=== PATIENT | male | born 1945 | race Caucasian/White ===

== ENCOUNTER 2016-12-08 14:17 | Inpatient (IN) | payer MEDICARE, OTHER ==
[~2016-12-08] VITALS: Ht 162.6 cm; Wt 43.1 kg
[~2016-12-08 14:17] MED LIST: AMLO5TAB2 PO; ATOR40TA PO; BUPR150T12 PO; CALA113P TP; DOCU250C75 PO; HALO5AMP3 IJ; HEPA500013 IJ; LORA1TAB PO; POLY17PO3 PO; QUET25TA PO; RISP2TAB23 PO; SENN176S PO; THIA100T74 PO; THIA100V2 IJ
[2016-12-08] MEDS ORDERED: BISA10SU61 RC (14:38)
[2016-12-08] MEDS ORDERED: MULT1CAP34 PO (14:38)
[2016-12-08] MEDS ORDERED: NA P133E RC (14:38)
[2016-12-08] MEDS ORDERED: MAGN400O6 PO (14:38)
[2016-12-08] MEDS ORDERED: MAG30ORA PO (14:38)
[2016-12-08] MEDS ORDERED: ASCO500T8 PO (14:38)
[2016-12-08] MEDS ORDERED: POTA20PA15 PO (14:38)
[2016-12-08] MEDS ORDERED: MIRT15TA3 PO (14:38)
[2016-12-08] MEDS ORDERED: ACET-868 PO (14:38)
[2016-12-08] MEDS ORDERED: IV SET PRIMARY 1 EA INFUS.SET MC ONE (14:50)
[2016-12-08] MEDS ORDERED: IV NS 0.9% 2,000 ML ONE (14:50)
[2016-12-08] MEDS ORDERED: IV SET PRIMARY PUMP SET 1 EA INFUS.SET MC ONE ×2 (14:50→18:34)
[2016-12-08] MEDS ORDERED: CEFTRIAXONE 1GM BAG (ER ONLY) 50 ML IV ONE ×2 (14:50→15:00)
[2016-12-08] MEDS ORDERED: AZITHROMYCIN 500 MG in IV D5W 250 ML IV ONE (15:00)
[2016-12-08] MEDS ORDERED: IV NS 0.9% 1,000 ML BAG IV ONE (15:00)
[2016-12-08 15:12] LABS: BASOPHILS # (AUTO) 0.1 /CMM (0.0-0.2); BASOPHILS % (AUTO) 0.2 % (0.0-2.0); DIFF TOTAL % 100 %; HEMATOCRIT 43 % (39-51); HEMOGLOBIN 14.6 g/dL (13.5-17.5); LYMPHOCYTES # (AUTO) 0.7 /CMM (0.8-4.8); LYMPHOCYTES % (AUTO) 2.3 % (20.0-44.0); MEAN CORPUSCULAR HEMOGLOBIN 31 PG (26.0-33.0); MEAN CORPUSCULAR HGB CONC 34 g/dl (31.0-36.0); MEAN CORPUSCULAR VOLUME 91 fL (80-96); MONOCYTES # (AUTO) 1.2 /CMM (0.1-1.30); MONOCYTES % (AUTO) 4.3 % (2.0-12.0); NEUTROPHILS # (AUTO) 26.4 /CMM (1.8-8.9); NEUTROPHILS % (AUTO) 93.2 % (43.0-81.0); PLATELET COUNT (AUTO) 440 /CMM (150-450); RED BLOOD CELL COUNT(AUTO) 4.73 MIL/uL (4.5-6.0); WHITE BLOOD COUNT (AUTO) 28.4 K/uL (4.3-11.0)
[2016-12-08 15:21] LABS: TROPONIN I 0.081 ng/mL (0.00-0.056)
[2016-12-08 15:26] LABS: ALBUMIN 2.3 g/dL (3.4-5.0); BILIRUBIN,DIRECT 0.4 mg/dL (0.0-0.2); BILIRUBIN,TOTAL 0.8 mg/dL (0.2-1.0); CALCIUM, SERUM 9.5 mg/dL (8.5-10.1); CREATININE 2.2 mg/dL (0.6-1.3); INDIRECT BILIRUBIN 0.4 mg/dL (0.0-1.1); POTASSIUM 4.2 mmol/L (3.5-5.1); TOTAL PROTEIN, SERUM 9.6 g/dL (6.4-8.2)
[2016-12-08] MEDS ORDERED: MORPHINE SULFATE INJ 2 MG/ML DISP.SYRIN IV PRN (16:30)
[2016-12-08] MEDS ORDERED: MEROPENEM 500 MG in IV NS 0.9% 50 ML IV SCH (16:30)
[2016-12-08] MEDS ORDERED: Z GUARD REMEDY 2 OZ OINT TP PRN (16:30)
[2016-12-08] MEDS ORDERED: ACETAMINOPHEN 650 MG/SUPP.RECT RC PRN (16:30)
[2016-12-08] MEDS ORDERED: ONDANSETRON HCL/PF 4 MG/2 ML VIAL IVP PRN (16:30)
[2016-12-08 17:30] VITALS: BP 113/57
[2016-12-08] MEDS ORDERED: FEE PK DOSING 1 MIN EA MC ONE (17:51)
[2016-12-08 18:00] VITALS: BP 113/57
[2016-12-08] MEDS ORDERED: VANCOMYCIN 0.75 GM in IV D5W 250 ML IV SCH (18:00)
[2016-12-08] MEDS ORDERED: SECONDARY IV SET 1 EA INFUS.SET MC ONE (18:34)
[2016-12-08] MEDS ORDERED: IV NS 0.9% 250 ML IV ONE (18:34)
[2016-12-08] MEDS ORDERED: IV D5/ 0.9% NACL 1,000 ML IV ONE (19:36)
[2016-12-08] MEDS: MEROPENEM 500 MG in IV NS 0.9% 50 ML IV SCH (19:41)
[2016-12-08] MEDS: IV D5/ 0.9% NACL 1,000 ML IV PRN (19:41)
[2016-12-08 20:00] VITALS: BP 110/74
[2016-12-08 21:05] LABS: LACTIC ACID 3.4 mmol/L (0.4-2.0)
[2016-12-08 21:27] LABS: KETONES,URINE NEGATIVE (NEGATIVE); LEUKOCYTE ESTERASE ,URINE NEGATIVE (NEGATIVE)
[2016-12-08 21:28] LABS: ADD UA MICROSCOPIC YES
[2016-12-08 21:32] LABS: *LACTIC ACID REFLEX FLAG YES
[2016-12-08 21:35] LABS: ADD URINE CULTURE NO
[2016-12-09] VITALS: BP 120/81
[2016-12-09 04:00] VITALS: BP 90/57
[2016-12-09] MEDS ORDERED: IV D5/ 0.9% NACL 1,000 ML IV ONE (05:23)
[2016-12-09] MEDS: IV D5/ 0.9% NACL 1,000 ML IV PRN (05:28)
[2016-12-09 06:56] LABS: BASOPHILS % (AUTO) 0.2 % (0.0-2.0); DIFF TOTAL % 100 %; EOSINOPHILS # (AUTO) 0.1 /CMM (0.0-0.7); EOSINOPHILS % (AUTO) 0.3 % (0.0-6.0); HEMATOCRIT 36 % (39-51); HEMOGLOBIN 11.5 g/dL (13.5-17.5); LYMPHOCYTES # (AUTO) 0.8 /CMM (0.8-4.8); MEAN CORPUSCULAR HEMOGLOBIN 30 PG (26.0-33.0); MEAN CORPUSCULAR HGB CONC 32 g/dl (31.0-36.0); MEAN CORPUSCULAR VOLUME 92 fL (80-96); MONOCYTES # (AUTO) 0.5 /CMM (0.1-1.30); MONOCYTES % (AUTO) 2.4 % (2.0-12.0); NEUTROPHILS # (AUTO) 18.9 /CMM (1.8-8.9); NEUTROPHILS % (AUTO) 93.1 % (43.0-81.0); PLATELET COUNT (AUTO) 324 /CMM (150-450); RED BLOOD CELL COUNT(AUTO) 3.87 MIL/uL (4.5-6.0); WHITE BLOOD COUNT (AUTO) 20.3 K/uL (4.3-11.0)
[2016-12-09 07:19] LABS: CALCIUM, SERUM 8.4 mg/dL (8.5-10.1); CREATININE 1.4 mg/dL (0.6-1.3); PHOSPHORUS 3.3 mg/dL (2.5-4.9); POTASSIUM 4.3 mmol/L (3.5-5.1)
[2016-12-09 07:37] LABS: THYROID STIMULATING HORMONE 0.171 uIU/mL (0.358-3.74)
[2016-12-09 08:00] VITALS: BP_SYST 104; BP_SYST 109; BP_DIAS 61
[2016-12-09] MEDS: MEROPENEM 500 MG in IV NS 0.9% 50 ML IV SCH ×2 (09:07→20:21)
[2016-12-09] MEDS: PANTOPRAZOLE 40 MG VIAL IV SCH (09:08)
[2016-12-09] MEDS ORDERED: SECONDARY IV SET 1 EA INFUS.SET MC ONE (12:55)
[2016-12-09] MEDS: VANCOMYCIN 0.75 GM in IV D5W 250 ML IV SCH (12:55)
[2016-12-09] MEDS: IV D5/0.45 NACL 1,000 ML IV PRN (12:57)
[2016-12-09 16:00] VITALS: BP 121/63
[2016-12-09 20:00] VITALS: BP 117/70
[2016-12-10] MEDS: IV D5/0.45 NACL 1,000 ML IV PRN (01:24)
[2016-12-10 04:00] VITALS: BP 106/63
[2016-12-10] MEDS: VANCOMYCIN 0.75 GM in IV D5W 250 ML IV SCH ×2 (05:24→23:47)
[2016-12-10 07:10] LABS: DIFF TOTAL % 100 %; EOSINOPHILS # (AUTO) 0.1 /CMM (0.0-0.7); EOSINOPHILS % (AUTO) 0.4 % (0.0-6.0); HEMATOCRIT 36 % (39-51); HEMOGLOBIN 11.8 g/dL (13.5-17.5); LYMPHOCYTES # (AUTO) 0.7 /CMM (0.8-4.8); LYMPHOCYTES % (AUTO) 3.8 % (20.0-44.0); MEAN CORPUSCULAR HEMOGLOBIN 30 PG (26.0-33.0); MEAN CORPUSCULAR HGB CONC 33 g/dl (31.0-36.0); MEAN CORPUSCULAR VOLUME 92 fL (80-96); MONOCYTES # (AUTO) 0.5 /CMM (0.1-1.30); NEUTROPHILS % (AUTO) 92.8 % (43.0-81.0); PLATELET COUNT (AUTO) 300 /CMM (150-450); RED BLOOD CELL COUNT(AUTO) 3.91 MIL/uL (4.5-6.0); WHITE BLOOD COUNT (AUTO) 17.3 K/uL (4.3-11.0)
[2016-12-10 07:19] LABS: CREATININE 1.4 mg/dL (0.6-1.3); PHOSPHORUS 3.7 mg/dL (2.5-4.9); POTASSIUM 4.1 mmol/L (3.5-5.1)
[2016-12-10 08:00] VITALS: BP 100/61
[2016-12-10] MEDS: MEROPENEM 500 MG in IV NS 0.9% 50 ML IV SCH ×2 (08:36→19:41)
[2016-12-10] MEDS: PANTOPRAZOLE 40 MG VIAL IV SCH (08:36)
[2016-12-10] MEDS ORDERED: IV D5W 1,000 ML IV PRN (11:00)
[2016-12-10 13:05] LABS: ABG BASE EXCESS -6.1 mmol/L; ABG PCO2 23.3 mmHg (35.0-45.0); ABG PH 7.455 (7.350-7.450); ABG PO2 66.3 mmHg (75.0-100.0); ABG TOTAL HEMOGLOBIN 12.2 G/dL (13.5-18.0); ALLEN TEST PASSED; AaDO2 407.8 mmHg; O2Hb 91.4 % (94.0-97.0)
[2016-12-10] MEDS ORDERED: FUROSEMIDE 40 MG/4 ML VIAL IV ONE ×2 (13:30→14:30)
[2016-12-10 16:00] VITALS: BP 97/69
[2016-12-10] MEDS: IV D5W 1,000 ML IV PRN (16:45)
[2016-12-10] MEDS: ENOXAPARIN SODIUM 30 MG/0.3 ML DISP.SYRIN SQ SCH (16:46)
[2016-12-10 20:00] VITALS: BP 96/57
[2016-12-10] MEDS ORDERED: SECONDARY IV SET 1 EA INFUS.SET MC ONE (23:44)
[2016-12-11] VITALS (7 sets, daily range): BP systolic 96–114; BP diastolic 48–62
[2016-12-11] MEDS: IV D5W 1,000 ML IV PRN ×2 (05:31→17:31)
[2016-12-11 07:11] LABS: CALCIUM, SERUM 8.6 mg/dL (8.5-10.1); CREATININE 1.3 mg/dL (0.6-1.3); POTASSIUM 3.5 mmol/L (3.5-5.1)
[2016-12-11] MEDS: PANTOPRAZOLE 40 MG VIAL IV SCH (08:35)
[2016-12-11] MEDS: MEROPENEM 500 MG in IV NS 0.9% 50 ML IV SCH ×2 (08:36→20:26)
[2016-12-11] MEDS: VANCOMYCIN 0.75 GM in IV D5W 250 ML IV SCH (18:20)
[2016-12-11] MEDS: ENOXAPARIN SODIUM 30 MG/0.3 ML DISP.SYRIN SQ SCH (20:27)
[2016-12-11] MEDS ORDERED: SECONDARY IV SET 1 EA INFUS.SET MC ONE (20:50)
[2016-12-12] VITALS: BP 121/55
[2016-12-12 04:00] VITALS: BP_SYST 106; BP_SYST 121; BP_DIAS 54; BP_DIAS 55
[2016-12-12 07:20] LABS: BASOPHILS % (AUTO) 0.4 % (0.0-2.0); DIFF TOTAL % 100 %; EOSINOPHILS # (AUTO) 0.4 /CMM (0.0-0.7); EOSINOPHILS % (AUTO) 3.8 % (0.0-6.0); HEMATOCRIT 38 % (39-51); HEMOGLOBIN 12.4 g/dL (13.5-17.5); LYMPHOCYTES # (AUTO) 0.9 /CMM (0.8-4.8); LYMPHOCYTES % (AUTO) 8.5 % (20.0-44.0); MEAN CORPUSCULAR HEMOGLOBIN 29 PG (26.0-33.0); MEAN CORPUSCULAR HGB CONC 32 g/dl (31.0-36.0); MEAN CORPUSCULAR VOLUME 91 fL (80-96); MONOCYTES # (AUTO) 0.3 /CMM (0.1-1.30); MONOCYTES % (AUTO) 2.9 % (2.0-12.0); NEUTROPHILS # (AUTO) 8.9 /CMM (1.8-8.9); NEUTROPHILS % (AUTO) 84.4 % (43.0-81.0); PLATELET COUNT (AUTO) 248 /CMM (150-450); RED BLOOD CELL COUNT(AUTO) 4.23 MIL/uL (4.5-6.0); WHITE BLOOD COUNT (AUTO) 10.6 K/uL (4.3-11.0)
[2016-12-12 07:27] LABS: CALCIUM, SERUM 8.8 mg/dL (8.5-10.1); CREATININE 1.2 mg/dL (0.6-1.3); PHOSPHORUS 3.5 mg/dL (2.5-4.9)
[2016-12-12 08:00] VITALS: BP 94/62
[2016-12-12] MEDS: MEROPENEM 500 MG in IV NS 0.9% 50 ML IV SCH ×2 (08:33→20:46)
[2016-12-12] MEDS: PANTOPRAZOLE 40 MG VIAL IV SCH (08:34)
[2016-12-12] MEDS: IV D5W 1,000 ML IV PRN (08:34)
[2016-12-12 12:00] VITALS: BP 90/40
[2016-12-12] MEDS: VANCOMYCIN 0.75 GM in IV D5W 250 ML IV SCH (12:22)
[2016-12-12 16:00] VITALS: BP 113/49
[2016-12-12 20:00] VITALS: BP 96/60
[2016-12-12] MEDS: ENOXAPARIN SODIUM 30 MG/0.3 ML DISP.SYRIN SQ SCH (20:47)
[2016-12-13] VITALS (25 sets, daily range): BP systolic 60–146; BP diastolic 19–99
[2016-12-13] MEDS: IV D5W 1,000 ML IV PRN ×2 (02:56→17:39)
[2016-12-13] MEDS: VANCOMYCIN 0.75 GM in IV D5W 250 ML IV SCH (05:26)
[2016-12-13 07:30] LABS: CALCIUM, SERUM 8.7 mg/dL (8.5-10.1); CREATININE 1.4 mg/dL (0.6-1.3); POTASSIUM 3.6 mmol/L (3.5-5.1)
[2016-12-13] MEDS: MEROPENEM 500 MG in IV NS 0.9% 50 ML IV SCH ×2 (08:35→20:21)
[2016-12-13] MEDS: PANTOPRAZOLE 40 MG VIAL IV SCH (08:35)
[2016-12-13 09:57] LABS: ABG BASE EXCESS -2.7 mmol/L; ABG HCO3 19.7 mmol/L; ABG PCO2 27.2 mmHg (35.0-45.0); ABG PH 7.477 (7.350-7.450); ABG PO2 52.9 mmHg (75.0-100.0); ABG TOTAL HEMOGLOBIN 11.7 G/dL (13.5-18.0); ALLEN TEST Pass; O2Hb 87.4 % (94.0-97.0)
[2016-12-13] MEDS: NEOMY SULF/BACITRAC ZN/POLY 15 GM TUBE TP SCH (20:22)
[2016-12-13] MEDS: ENOXAPARIN SODIUM 30 MG/0.3 ML DISP.SYRIN SQ SCH (20:22)
[2016-12-14] VITALS (31 sets, daily range): BP systolic 87–173; BP diastolic 29–80
[2016-12-14] MEDS: VANCOMYCIN 0.75 GM in IV D5W 250 ML IV SCH ×2 (00:02→17:55)
[2016-12-14 04:48] LABS: BASOPHILS % (AUTO) 0.2 % (0.0-2.0); DIFF TOTAL % 100 %; EOSINOPHILS # (AUTO) 0.3 /CMM (0.0-0.7); EOSINOPHILS % (AUTO) 2.1 % (0.0-6.0); HEMATOCRIT 34 % (39-51); HEMOGLOBIN 11.1 g/dL (13.5-17.5); LYMPHOCYTES # (AUTO) 0.8 /CMM (0.8-4.8); LYMPHOCYTES % (AUTO) 6.2 % (20.0-44.0); MEAN CORPUSCULAR HEMOGLOBIN 30 PG (26.0-33.0); MEAN CORPUSCULAR HGB CONC 33 g/dl (31.0-36.0); MEAN CORPUSCULAR VOLUME 89 fL (80-96); MONOCYTES # (AUTO) 0.5 /CMM (0.1-1.30); MONOCYTES % (AUTO) 3.8 % (2.0-12.0); NEUTROPHILS # (AUTO) 12.1 /CMM (1.8-8.9); NEUTROPHILS % (AUTO) 87.7 % (43.0-81.0); PLATELET COUNT (AUTO) 358 /CMM (150-450); RED BLOOD CELL COUNT(AUTO) 3.76 MIL/uL (4.5-6.0); WHITE BLOOD COUNT (AUTO) 13.8 K/uL (4.3-11.0)
[2016-12-14 05:08] LABS: CALCIUM, SERUM 8.4 mg/dL (8.5-10.1); CREATININE 1.1 mg/dL (0.6-1.3); PHOSPHORUS 3.1 mg/dL (2.5-4.9); POTASSIUM 3.3 mmol/L (3.5-5.1)
[2016-12-14] MEDS: MEROPENEM 500 MG in IV NS 0.9% 50 ML IV SCH ×2 (08:10→20:17)
[2016-12-14] MEDS: PANTOPRAZOLE 40 MG VIAL IV SCH (08:10)
[2016-12-14] MEDS: IV D5W 1,000 ML IV PRN (08:10)
[2016-12-14] MEDS: NEOMY SULF/BACITRAC ZN/POLY 15 GM TUBE TP SCH ×2 (08:11→20:19)
[2016-12-14] MEDS ORDERED: IV SET PRIMARY PUMP SET 1 EA INFUS.SET MC ONE (10:15)
[2016-12-14] MEDS ORDERED: SECONDARY IV SET 1 EA INFUS.SET MC ONE (10:15)
[2016-12-14] MEDS ORDERED: IV NS 0.9% 250 ML IV ONE (10:15)
[2016-12-14] MEDS: POTASSIUM CL. PREMIX PERIPHER. 50 ML IV SCH ×4 (10:18→13:12)
[2016-12-14 18:17] LABS: INR 1.26 (0.87-1.13); PROTHROMBIN TIME 13.6 SECS (9.5-12.7)
[2016-12-14] MEDS: ENOXAPARIN SODIUM 30 MG/0.3 ML DISP.SYRIN SQ SCH (20:18)
[2016-12-15] VITALS: BP 109/54
[2016-12-15] MEDS ORDERED: IV SET PRIMARY PUMP SET 1 EA INFUS.SET MC ONE (01:06)
[2016-12-15] MEDS: IV D5W 1,000 ML IV PRN ×2 (01:10→09:21)
[2016-12-15 04:00] VITALS: BP 107/50
[2016-12-15 06:50] LABS: BASOPHILS % (AUTO) 0.1 % (0.0-2.0); DIFF TOTAL % 100 %; EOSINOPHILS # (AUTO) 0.3 /CMM (0.0-0.7); EOSINOPHILS % (AUTO) 3.4 % (0.0-6.0); HEMATOCRIT 32 % (39-51); HEMOGLOBIN 11.1 g/dL (13.5-17.5); LYMPHOCYTES # (AUTO) 0.7 /CMM (0.8-4.8); LYMPHOCYTES % (AUTO) 7.5 % (20.0-44.0); MEAN CORPUSCULAR HEMOGLOBIN 30 PG (26.0-33.0); MEAN CORPUSCULAR HGB CONC 34 g/dl (31.0-36.0); MEAN CORPUSCULAR VOLUME 88 fL (80-96); MONOCYTES # (AUTO) 0.4 /CMM (0.1-1.30); MONOCYTES % (AUTO) 4.6 % (2.0-12.0); NEUTROPHILS # (AUTO) 7.4 /CMM (1.8-8.9); NEUTROPHILS % (AUTO) 84.4 % (43.0-81.0); PLATELET COUNT (AUTO) 328 /CMM (150-450); RED BLOOD CELL COUNT(AUTO) 3.68 MIL/uL (4.5-6.0); WHITE BLOOD COUNT (AUTO) 8.8 K/uL (4.3-11.0)
[2016-12-15 06:58] LABS: CALCIUM, SERUM 7.9 mg/dL (8.5-10.1); POTASSIUM 3.3 mmol/L (3.5-5.1)
[2016-12-15 07:01] LABS: INR 1.26 (0.87-1.13); PROTHROMBIN TIME 13.6 SECS (9.5-12.7)
[2016-12-15 08:00] VITALS: BP 108/60
[2016-12-15] MEDS ORDERED: SECONDARY IV SET 1 EA INFUS.SET MC ONE ×2 (08:59→12:41)
[2016-12-15] MEDS: MEROPENEM 500 MG in IV NS 0.9% 50 ML IV SCH ×2 (09:19→20:13)
[2016-12-15] MEDS: POTASSIUM CL. PREMIX PERIPHER. 50 ML IV SCH ×4 (09:20→14:25)
[2016-12-15] MEDS: PANTOPRAZOLE 40 MG VIAL IV SCH (09:20)
[2016-12-15] MEDS: NEOMY SULF/BACITRAC ZN/POLY 15 GM TUBE TP SCH ×2 (09:21→20:15)
[2016-12-15 12:00] VITALS: BP 105/60
[2016-12-15] MEDS: VANCOMYCIN 0.75 GM in IV D5W 250 ML IV SCH (12:41)
[2016-12-15] MEDS: Potassium Chloride 40 MEQ in IV D5W 1,000 ML IV PRN (12:48)
[2016-12-15 14:40] LABS: ALBUMIN 1.5 g/dL (3.4-5.0); BILIRUBIN,TOTAL 0.6 mg/dL (0.2-1.0); CALCIUM, SERUM 7.9 mg/dL (8.5-10.1); POTASSIUM 3.5 mmol/L (3.5-5.1); TOTAL PROTEIN, SERUM 6.7 g/dL (6.4-8.2)
[2016-12-15 16:00] VITALS: BP 92/50
[2016-12-15] MEDS ORDERED: POTASSIUM CL. PREMIX PERIPHER. 50 ML IV SCH (16:30)
[2016-12-15 20:00] VITALS: BP 108/60
[2016-12-15] MEDS: ENOXAPARIN SODIUM 30 MG/0.3 ML DISP.SYRIN SQ SCH (20:15)
[2016-12-16] VITALS (9 sets, daily range): BP systolic 100–118; BP diastolic 51–67
[2016-12-16] MEDS: VANCOMYCIN 0.75 GM in IV D5W 250 ML IV SCH ×2 (05:34→23:47)
[2016-12-16] MEDS: Potassium Chloride 40 MEQ in IV D5W 1,000 ML IV PRN ×2 (05:34→23:44)
[2016-12-16] MEDS: PANTOPRAZOLE 40 MG VIAL IV SCH (08:16)
[2016-12-16] MEDS: NEOMY SULF/BACITRAC ZN/POLY 15 GM TUBE TP SCH ×2 (08:17→20:59)
[2016-12-16] MEDS: MEROPENEM 500 MG in IV NS 0.9% 50 ML IV SCH ×2 (08:17→20:40)
[2016-12-16 10:04] LABS: BASOPHILS % (AUTO) 0.1 % (0.0-2.0); DIFF TOTAL % 100 %; EOSINOPHILS # (AUTO) 0.2 /CMM (0.0-0.7); EOSINOPHILS % (AUTO) 2.9 % (0.0-6.0); HEMATOCRIT 32 % (39-51); HEMOGLOBIN 10.7 g/dL (13.5-17.5); LYMPHOCYTES # (AUTO) 0.7 /CMM (0.8-4.8); LYMPHOCYTES % (AUTO) 8.4 % (20.0-44.0); MEAN CORPUSCULAR HEMOGLOBIN 30 PG (26.0-33.0); MEAN CORPUSCULAR HGB CONC 34 g/dl (31.0-36.0); MEAN CORPUSCULAR VOLUME 87 fL (80-96); MONOCYTES # (AUTO) 0.4 /CMM (0.1-1.30); MONOCYTES % (AUTO) 4.6 % (2.0-12.0); NEUTROPHILS # (AUTO) 6.6 /CMM (1.8-8.9); PLATELET COUNT (AUTO) 376 /CMM (150-450); RED BLOOD CELL COUNT(AUTO) 3.61 MIL/uL (4.5-6.0); WHITE BLOOD COUNT (AUTO) 7.9 K/uL (4.3-11.0)
[2016-12-16 10:17] LABS: PHOSPHORUS 3.1 mg/dL (2.5-4.9); POTASSIUM 4.1 mmol/L (3.5-5.1)
[2016-12-16] MEDS ORDERED: SECONDARY IV SET 1 EA INFUS.SET MC ONE (12:52)
[2016-12-16] MEDS: ALBUMIN 25% 25 GM in PREMIX 1 EA IV SCH ×2 (13:03→17:49)
[2016-12-16] MEDS: ENOXAPARIN SODIUM 30 MG/0.3 ML DISP.SYRIN SQ SCH (20:56)
[2016-12-17] VITALS (8 sets, daily range): BP systolic 95–126; BP diastolic 44–88
[2016-12-17] MEDS: ALBUMIN 25% 25 GM in PREMIX 1 EA IV SCH ×2 (01:12→05:56)
[2016-12-17 06:53] LABS: BASOPHILS % (AUTO) 0.6 % (0.0-2.0); DIFF TOTAL % 100 %; EOSINOPHILS # (AUTO) 0.3 /CMM (0.0-0.7); EOSINOPHILS % (AUTO) 3.7 % (0.0-6.0); HEMATOCRIT 32 % (39-51); HEMOGLOBIN 10.7 g/dL (13.5-17.5); LYMPHOCYTES # (AUTO) 0.7 /CMM (0.8-4.8); LYMPHOCYTES % (AUTO) 9.5 % (20.0-44.0); MEAN CORPUSCULAR HEMOGLOBIN 30 PG (26.0-33.0); MEAN CORPUSCULAR HGB CONC 34 g/dl (31.0-36.0); MEAN CORPUSCULAR VOLUME 87 fL (80-96); MONOCYTES # (AUTO) 0.4 /CMM (0.1-1.30); NEUTROPHILS # (AUTO) 5.7 /CMM (1.8-8.9); NEUTROPHILS % (AUTO) 80.2 % (43.0-81.0); PLATELET COUNT (AUTO) 401 /CMM (150-450); RED BLOOD CELL COUNT(AUTO) 3.61 MIL/uL (4.5-6.0); WHITE BLOOD COUNT (AUTO) 7.2 K/uL (4.3-11.0)
[2016-12-17 07:31] LABS: CALCIUM, SERUM 8.5 mg/dL (8.5-10.1); CREATININE 0.9 mg/dL (0.6-1.3); PHOSPHORUS 2.9 mg/dL (2.5-4.9); POTASSIUM 4.1 mmol/L (3.5-5.1)
[2016-12-17] MEDS: PANTOPRAZOLE 40 MG VIAL IV SCH (08:58)
[2016-12-17] MEDS: MEROPENEM 500 MG in IV NS 0.9% 50 ML IV SCH ×2 (08:58→19:59)
[2016-12-17] MEDS: NEOMY SULF/BACITRAC ZN/POLY 15 GM TUBE TP SCH ×2 (08:59→21:04)
[2016-12-17] MEDS: VANCOMYCIN 0.75 GM in IV D5W 250 ML IV SCH (17:36)
[2016-12-17] MEDS: Potassium Chloride 40 MEQ in IV D5W 1,000 ML IV PRN (20:00)
[2016-12-17] MEDS: ENOXAPARIN SODIUM 30 MG/0.3 ML DISP.SYRIN SQ SCH (21:02)
[2016-12-18] VITALS: BP 101/46
[2016-12-18 04:00] VITALS: BP 95/42
[2016-12-18 07:33] LABS: HEMATOCRIT 31 % (39-51); HEMOGLOBIN 10.3 g/dL (13.5-17.5); LYMPHOCYTES % (AUTO) 9.1 % (20.0-44.0); MEAN CORPUSCULAR HEMOGLOBIN 30 PG (26.0-33.0); MEAN CORPUSCULAR HGB CONC 34 g/dl (31.0-36.0); MEAN CORPUSCULAR VOLUME 88 fL (80-96); PLATELET COUNT (AUTO) 449 /CMM (150-450); RED BLOOD CELL COUNT(AUTO) 3.49 MIL/uL (4.5-6.0); WHITE BLOOD COUNT (AUTO) 10.9 K/uL (4.3-11.0)
[2016-12-18 07:34] LABS: BASOPHILS % (AUTO) 0.1 % (0.0-2.0); DIFF TOTAL % 100 %; EOSINOPHILS # (AUTO) 0.2 /CMM (0.0-0.7); EOSINOPHILS % (AUTO) 2.3 % (0.0-6.0); MONOCYTES # (AUTO) 0.6 /CMM (0.1-1.30); MONOCYTES % (AUTO) 5.5 % (2.0-12.0); NEUTROPHILS # (AUTO) 9.1 /CMM (1.8-8.9)
[2016-12-18 07:39] LABS: CALCIUM, SERUM 8.3 mg/dL (8.5-10.1); PHOSPHORUS 2.6 mg/dL (2.5-4.9); POTASSIUM 4.6 mmol/L (3.5-5.1)
[2016-12-18 08:00] VITALS: BP_SYST 103; BP_SYST 107; BP_DIAS 44; BP_DIAS 62
[2016-12-18] MEDS: MEROPENEM 500 MG in IV NS 0.9% 50 ML IV SCH (08:00)
[2016-12-18 09:00] VITALS: BP 107/59
[2016-12-18] MEDS ORDERED: FIBERSOURCE HN 1,000 ML BOTTLE GT PRN ×2 (09:00)
[2016-12-18] MEDS: PANTOPRAZOLE 40 MG VIAL IV SCH (09:37)
[2016-12-18] MEDS: NEOMY SULF/BACITRAC ZN/POLY 15 GM TUBE TP SCH (09:37)
[2016-12-18 12:00] VITALS: BP 107/59
[2016-12-18] MEDS: VANCOMYCIN 0.75 GM in IV D5W 250 ML IV SCH (12:07)
[2016-12-18] MEDS ORDERED: Nutritional Supplement/Fiber GT (13:58)
[2016-12-18 16:00] VITALS: BP 100/63
== END 2016-12-18 18:59 | disposition short-term general hospital (02) | DRG 871 ==
LOC: ER 14:19 → TELE-TD 17:04 → MEDSG1 12-09 09:00 → TELE-TD 12-10 13:34 → ICU 12-13 10:49 → TELE-TD 12-14 18:34 → TELE1 12-16 13:40
PROC: 05H633Z Insertion of Infusion Device into Left Subclavian Vein, Percutaneous Approach (ICD-10-PCS; 2016-12-13)
PROC: B547ZZA Ultrasonography of Left Subclavian Vein, Guidance (ICD-10-PCS; 2016-12-13)
PROC: 0DH63UZ Insertion of Feeding Device into Stomach, Percutaneous Approach (ICD-10-PCS; principal; 2016-12-17 14:19)
DX: A41.9 Sepsis, unspecified organism (principal); N17.0 Acute kidney failure with tubular necrosis; J18.9 Pneumonia, unspecified organism; I21.4 Non-ST elevation (NSTEMI) myocardial infarction; G93.40 Encephalopathy, unspecified; E43 Unspecified severe protein-calorie malnutrition; K72.00 Acute and subacute hepatic failure without coma; J96.01 Acute respiratory failure with hypoxia; N39.0 Urinary tract infection, site not specified; E87.0 Hyperosmolality and hypernatremia; I42.9 Cardiomyopathy, unspecified; Z68.1 Body mass index [BMI] 19.9 or less, adult; L03.113 Cellulitis of right upper limb; R64 Cachexia; R65.20 Severe sepsis without septic shock; F03.90 Unspecified dementia, unspecified severity, without behavioral disturbance, psychotic disturbance, mood disturbance, and anxiety; I73.9 Peripheral vascular disease, unspecified; I25.10 Atherosclerotic heart disease of native coronary artery without angina pectoris; I10 Essential (primary) hypertension; E78.5 Hyperlipidemia, unspecified; F31.9 Bipolar disorder, unspecified; F43.10 Post-traumatic stress disorder, unspecified; Z89.611 Acquired absence of right leg above knee; E87.8 Other disorders of electrolyte and fluid balance, not elsewhere classified; E87.6 Hypokalemia; R13.10 Dysphagia, unspecified; D64.9 Anemia, unspecified; E11.51 Type 2 diabetes mellitus with diabetic peripheral angiopathy without gangrene; E86.0 Dehydration; G89.29 Other chronic pain; I50.9 Heart failure, unspecified
CPT/HCPCS: 36415; 36569; 36600; 43246; 71010-TC; 80048-TC; 80053-TC; 80061-TC; 80076-TC; 80202-TC; 81000-TC; 82040-TC; 82803-TC; 82962-TC; 83605-TC; 83735-TC; 83880; 84100-TC; 84443-TC; 84484-TC; 85025-TC; 85610-TC; 85730-TC; 87040-TC; 87081-TC; 87086-TC; 87186-TC; 87400; 92611-TC; 93307-TC; 93970-TC; 93971-TC; 94799-TC; 97001-TC; A4216; A4349; A4606; A6403; C9113; J0456; J0696; J1650; J1940; J2185; J2270; J3370; J3480; J3490; J7030; J7042; J7050; J7060; J7070; P9047; Z7610